=== PATIENT | female | born 1995 | race Asian ===

== ENCOUNTER 2025-06-07 04:17 | Inpatient (IN) ==
[2025-06-07] MEDS ORDERED: LIDOCAINE 1% LOCAL 20 ML VIAL INFIL PRN (07:40)
[2025-06-07] MEDS ORDERED: CALCIUM CARBONATE 500 MG CHEWABLE TAB PO PRN (07:40)
[2025-06-07] MEDS ORDERED: OXYTOCIN 30 UNITS/NSS 30 UNITS/500 ML BAG IV PRN ×2 (07:40→19:11)
--- NOTE | 2025-06-07 07:45 | History & Physical Report ---
Date of Service June 07, 2025 Assessment & Plan (1) Normal labor: Plan admit, iv, labs. pt desires epidural, aware this is early labor and will need to plan pit aug given irregular ctx. they agree. fhts categ 1. History of Present Illness Chief Complaint: contractions and pain. Primary Care Provider: NO PCP 30yo at 39+wks karolina presents to LD with contractions and pain and some bleeding. Initial evaluation on LD cx 2-3cm/50%, she walked and now back on monitor for evaluation. Still with pain. No active bleeding. PNC uncomplicated, transferred care from [place] at about 25wks, PNL RH pos, RI, gbs neg. OBH: g1 GYNH: nl pap about 1yr ago in [place], per pt. no stds Allergies Allergy/AdvReac Type Severity Reaction Status Date / Time No Known Allergies Allergy Verified 06/02/25 11:16 Home Medications Medication Instructions Recorded Confirmed Type calcium carbonate [Calcium 500] PO DAILY 03/01/25 06/02/25 History cholecalciferol (vitamin D3) PO DAILY 03/01/25 06/02/25 History ferrous sulfate [Iron (ferrous PO DAILY 03/01/25 06/02/25 History sulfate)] folic acid PO DAILY 03/01/25 06/02/25 History polyethylene glycol 3350 [Miralax] PO PRN Constipation 03/01/25 06/02/25 History Patient History Medical History Varicella vaccination Eczema Surgical History S/P breast augmentation Family History Denies family history of Ovarian cancer Breast cancer Colorectal cancer Social History (Updated 03/01/25 @ 09:32 by Brooke Reddy) Smoking Status: Never smoker Do You Dip or Chew Tobacco: No; Hx Alcohol Use: No Hx Substance Use: No Preferred Language: Mandarin Burmese Communication Ability: Effective Civil Attorney Required: Yes Beliefs That Will Affect Care: None marital status: marital status details: Katie Espinal (34) [phone] Current Living Situation: Spouse Current Living Situation Comment: lives with spouse, no pets current occupational status: unemployed Other Information That Helps Us Care for You: No Feels Safe at Home: Yes Safety Concerns: Feels Safe At This Time Assistive Devices: Glasses Review of Systems as per Subjective / HPI Physical Exam Constitutional: WD/WN, vitals as above Respiratory: normal respiratory effort, lungs clear to auscultation Cardiovascular: Rate/Rhythm: regular rate and regular rhythm Gastrointestinal (Abdomen): soft gravid nt efw 6-7# Musculoskeletal: no edema nontender calves Neurologic: grossly normal Psychiatric: A+Ox3, euthymic affect Genitourinary: Manual OB Exam: + cervical dilation 4 cm, + cervical effacement 70% and + station -2 OB Exam Monitor Tracing: + external FHT monitor used, + external uterine monitor used (q2-6), + category I and + normal FHT variability Results & Data Vital Signs (Past 12 Hours) Vital Signs Temp Pulse Resp BP O2 Del Method 06/07/25 07:15 Room Air 06/07/25 07:11 72 99/54 L 06/07/25 04:47 97.9 F 67 18 112/55 L 06/07/25 04:41 97.9 F 18 Coding Level of Care Code None Diagnoses Normal labor O80; Z37.9
[2025-06-07 08:05] LABS: Hematocrit (blood only) 32.5 % (37.0-47.0); Hemoglobin 11.3 g/dL (12.0-16.0); Mean Corpuscular Hemoglobin 31.9 pg (25.0-34.0); Mean Corpuscular Volume 91.8 fL (80.0-100.0); Platelet Count 177 K/uL (130-400); RDW Standard Deviation 43.2 fL (36.4-46.3); Red Blood Count 3.54 M/uL (4.20-5.40); White Blood Count 10.04 K/ul (4.8-10.8)
[2025-06-07] MEDS: LACTATED RINGER'S 1,000 ML IV PRN (08:24)
--- NOTE | 2025-06-07 08:56 | Anesthesiology Consultation ---
Date of Service June 07, 2025 Assessment & Plan ASA ASA2 Proposed Anesthesia Anesthesia Type: Labor Epidural Risk / Benefits Reviewed With: PT / POA / Parent / Guardian, Accepts Plan and Informed Consent Obtained History Height/Weight Height: 5 ft 6 in Weight: 64.864 kg Allergies Allergy/AdvReac Type Severity Reaction Status Date / Time No Known Allergies Allergy Verified 06/02/25 11:16 Medications Home Medications Medication Instructions Recorded Confirmed Last Taken calcium carbonate [Calcium 500] PO DAILY 03/01/25 06/02/25 06/06/25 cholecalciferol (vitamin D3) PO DAILY 03/01/25 06/02/25 06/06/25 ferrous sulfate [Iron (ferrous PO DAILY 03/01/25 06/02/25 06/06/25 sulfate)] folic acid PO DAILY 03/01/25 06/02/25 06/06/25 polyethylene glycol 3350 [Miralax] PO PRN Constipation 03/01/25 06/02/25 06/06/25 Active Medications Generic Name Dose Route Start Last Admin Trade Name Scottq PRN Reason Stop Dose Admin Lactated Ringer's 1,000 mls @ 125 mls/hr 06/07/25 07:40 06/07/25 08:24 Lr IV 06/09/25 07:39 999 mls/hr .Q8H PRN Administration L&D Protocol Protocol Past Medical History Medical History Varicella vaccination Eczema Exercise / Class Metabolic Activity II 4-5 Yardwork/Stairs/Walk up hill Past Family History Family History Denies family history of Ovarian cancer Breast cancer Colorectal cancer Past Surgical History Surgical History S/P breast augmentation Past Anesthesia History No Hx of Anesthesia Complications and No Family Hx of Anesthesia Complications History of PONV No Hx of PONV and No Hx of Motion Sickness Social History Smoking Status: Never smoker Do You Dip or Chew Tobacco: No Hx Alcohol Use: No Hx Substance Use: No Review of Systems denies fever/cough/ colds/ chest pain/ SOB/ MARITZA denies MARITZA Physical Exam Vital Signs Last Vital Signs Temp 36.6 C 06/07/25 04:47 Pulse 69 06/07/25 08:52 Resp 18 06/07/25 04:47 BP 111/62 06/07/25 08:36 Pulse Ox 99 06/07/25 08:52 O2 Del Method Room Air 06/07/25 07:15 ENMT Mouth: no TMJ abnormality and no dentition abnormality Thyromental Distance: > or= 3.5 Finger Breadths Mallampati Class: II Neck neck extension not limited Respiratory normal respiratory effort; no respiratory distress Auscultation: lungs clear to auscultation bilaterally Cardiovascular Rate/Rhythm: regular rate and regular rhythm Neurologic moves all extremities Psychiatric Orientation: alert and oriented x 3 Testing Laboratory Results 06/07/25 07:50
[2025-06-07] MEDS ORDERED: LIDOCAINE 2% MPF LOCAL 5 ML VIAL EPI PRN (08:57)
[2025-06-07] MEDS ORDERED: NALBUPHINE HCL INJ 10 MG/ML AMP IV PRN (08:57)
[2025-06-07] MEDS ORDERED: ONDANSETRON INJ 2 MG/ML 2 ML VIAL IV PRN (08:57)
[2025-06-07] MEDS ORDERED: SODIUM CHLORIDE 0.9% PF INJ 10 ML VIAL EPI PRN (08:57)
[2025-06-07] MEDS ORDERED: NALOXONE HCL 0.4 MG/1 ML VIAL/CARP IV PRN (08:57)
[2025-06-07] MEDS ORDERED: ROPIVACAINE 0.5% PF 5 MG/ML 20 ML VIAL EPI PRN (08:57)
[2025-06-07] MEDS ORDERED: BUPIVACAINE 0.25% PF 30 ML VIAL EPI PRN (08:57)
[2025-06-07] MEDS ORDERED: NALOXONE HCL 1 MG in SODIUM CHLORIDE 0.9% 1,000 ML IV PRN (08:57)
[2025-06-07] MEDS ORDERED: PROMETHAZINE 6.25 MG/50.25 ML BAG IV PRN (08:57)
[2025-06-07] MEDS ORDERED: diphenhydrAMINE 50 MG/ML VIAL IV PRN (08:57)
[2025-06-07] MEDS: fentANYL 2 MCG/ML BUPIVacaine 0.125%-NSS 100ML BAG ONE (09:27)
[2025-06-07] MEDS: BUPIVACAINE 0.25% PF 30 ML VIAL ONE (09:28)
[2025-06-07] MEDS: LIDOCAINE 2%/EPINEPHRINE 1:200,000 20 ML PF ONE (09:28)
[2025-06-07] MEDS: BUPIVACAINE 0.25% PF 30 ML VIAL EPI STA (09:31)
[2025-06-07] MEDS: LIDOCAINE 2%/EPINEPHRINE 1:200,000 20 ML PF EPI STA (09:32)
[2025-06-07] MEDS: SODIUM CHLORIDE 0.9% PF INJ 10 ML VIAL EPI STA (09:48)
--- NOTE | 2025-06-07 10:29 | Labor Progress Brief Note ---
Date of Service June 07, 2025 Subjective Reason For Note: Routine Evaluation Assessment & Plan (1) Normal labor: Plan: Progressing well. Category 1 tracing. Will continue to monitor. (2) Supervision of normal first : Trimester: third trimester Qualified Code(s): Z34.03 - Encounter for supervision of normal first , third trimester Admission and Anticipated Discharge Date Admission Date: June 07, 2025 Physical Exam Genitourinary: normal external appearance Manual OB Exam: + cervical dilation (5-6), + cervical effacement 80%, + station -2 and + amniotic fluid (AROM) clear OB Exam Monitor Tracing: + external FHT monitor used, + external uterine monitor used, + category I and + normal FHT variability Results & Data Vital Signs (Past 12 Hours) Vital Signs Temp Pulse Resp BP Pulse Ox O2 Del Method 06/07/25 10:22 81 98 06/07/25 10:17 72 97 06/07/25 10:12 86 94 06/07/25 10:11 76 94 06/07/25 10:10 71 98/50 L 06/07/25 10:07 76 98 06/07/25 10:06 70 96/57 L 89 L 06/07/25 10:02 65 97 06/07/25 10:00 16 06/07/25 10:00 16 06/07/25 09:57 65 97 06/07/25 09:55 76 98/56 L 06/07/25 09:52 70 98 06/07/25 09:48 69 95/53 L 06/07/25 09:47 68 97 06/07/25 09:46 64 98/53 L 93 06/07/25 09:44 75 97/53 L 06/07/25 09:42 69 99/55 L 91 06/07/25 09:40 66 102/53 L 93 06/07/25 09:38 70 100/53 L 06/07/25 09:37 73 97 06/07/25 09:36 65 105/56 L 06/07/25 09:34 71 100/55 L 92 06/07/25 09:32 61 105/57 L 97 06/07/25 09:30 77 18 109/55 L 06/07/25 09:28 72 111/59 L 06/07/25 09:27 74 98 06/07/25 09:26 69 111/56 L 06/07/25 09:24 68 117/58 L 06/07/25 09:22 64 114/58 L 98 06/07/25 09:20 69 114/58 L 06/07/25 09:18 69 111/66 06/07/25 09:17 72 98 06/07/25 09:16 68 109/56 L 06/07/25 09:14 73 110/60 06/07/25 09:12 75 115/63 96 06/07/25 09:10 75 115/66 06/07/25 09:08 70 118/69 06/07/25 09:07 85 97 06/07/25 09:06 82 114/57 L 06/07/25 09:04 64 06/07/25 09:04 82 114/59 L 92 06/07/25 09:02 85 98 06/07/25 08:52 69 99 06/07/25 08:47 61 98 06/07/25 08:43 73 93 06/07/25 08:42 64 97 06/07/25 08:37 72 91 06/07/25 08:36 70 111/62 06/07/25 07:15 Room Air 06/07/25 07:11 72 99/54 L 06/07/25 04:47 36.6 C 67 18 112/55 L 06/07/25 04:41 36.6 C 18 Coding Level of Care Code None Diagnoses Normal labor O80; Z37.9 Encounter for supervision of normal first in third trimester Z34.03 Trimester: third trimester
[2025-06-07] MEDS: SODIUM CHLORIDE 0.9% PF INJ 10 ML VIAL ONE (11:19)
[2025-06-07] MEDS: fentANYL 2 MCG/ML BUPIVacaine 0.125%-NSS 100ML BAG EPI PRN (15:55)
[2025-06-07] MEDS: OXYTOCIN 30 UNITS/NSS 30 UNITS/500 ML BAG IV PRN (18:55)
[2025-06-07] MEDS: miSOPROStol 200 MCG TAB PR ONE (19:00)
[2025-06-07] MEDS ORDERED: HYDROCORTISONE ACETATE 25 MG SUPP PR PRN (19:11)
[2025-06-07] MEDS ORDERED: DIPHTHER/TETAN/PERTUS Vaccine (Tdap, Adol/Adult) 0.5mL IM ONE (19:11)
[2025-06-07] MEDS ORDERED: BENZOCAINE 20% SPRY 85 APPLN/85 GM CAN EXT PRN (19:11)
--- NOTE | 2025-06-07 19:16 | Delivery Summary ---
Vaginal Delivery Summary Date of Service June 07, 2025 Vaginal Delivery Summary and 2nd Degree LAC Patient progressed to 10 cm dilated, 100% effaced, +2 station and pushed over an intact perineum with epidural anesthesia and delivered a viable male with weight and Apgars pending. Had the delivered without difficulty quickly followed by shoulders and body. was noted be vigorous upon delivery and a 1 minute delayed cord clamping was initiated. Cord was then doubly clamped and cut remained on maternal abdomen. Cord blood obtained and attention turned to the delivery of the placenta which delivered intact with gentle cord traction. On inspection perineum vagina and cervix there is noted to be a second-degree perineal laceration which was repaired with 3-0 Vicryl in the traditional crown stitch. Needle sponge and instrument counts were correct at the completion of the case. Both mother and stable in the immediate post delivery timeframe. No complications noted and blood loss per QBL in chart [facility] Vaginal Delivery Charge Delivery Type Details: and 2nd Degree LAC
[2025-06-07] MEDS: DOCUSATE SODIUM 100 MG CAP PO SCH (22:47)
[2025-06-08 06:48] LABS: Hematocrit (blood only) 29.1 % (37.0-47.0); Hemoglobin 10.0 g/dL (12.0-16.0)
--- NOTE | 2025-06-08 07:29 | Obstetrical Progress Note ---
Date of Service June 08, 2025 Assessment & Plan (1) Normal vaginal delivery: Plan 30 yo post- day 1 s/p . Fells well today. Vital signs stable Continue post- care Encourage ambulation and Pain controlled with ibuprofen Hgb stable Discharge home tomorrow, follow up with Dr. Chew in 6 weeks. Admission and Anticipated Discharge Date Admission Date: June 07, 2025 Supervising Physician Co-Signing Physician Notes Patient seen with resident and agree with the above findings and plan. Has a Car catheter in place due to urinary retention. Will keep in place for 12 hours postplacement Subjective 30 yo post- day 1 s/p Ambulation: ambulating normally Voiding: no, Car in place Passing Gas:: Yes Diet Tolerance:: regular diet Lochia:: Small Feeding Type:: breast feeding Current Pain Level:Slight pain. Resting comfortably this AM in NAD. Denies METZGER, CP, SOB, N/V/D, LE pain/swelling. Review of Systems Review of Systems: As per HPI. Physical Exam Physical Exam: General: patient resting comfortably, NAD, non-toxic in appearance, AA&O x 4, answers questions appropriately. Skin: warm, dry, intact HEENT: NC/AT, anicteric sclera, conjunctiva without injection, moist mucus membranes. Heart: +S1/S2, regular, no m/r/g Lungs: equal air entry bilaterally, no rales/rhonchi/wheezes Abd: +BS, soft, NT/ND, uterine fundus firm at umbilicus Ext: warm, no clubbing/cyanosis or edema, Al Nena's neg. Neuro: nonfocal, patient AA&O x 4, speech intact, no facial droop, moving all extremities on command. Results & Data Vital Signs (Past 12 Hours) Vital Signs Temp Pulse Pulse Resp BP BP Pulse Ox 06/08/25 04:30 37.1 C 68 16 99/59 L 98 06/07/25 23:30 37.2 C 71 16 93/60 L 95 06/07/25 21:14 85 101/52 L 06/07/25 20:59 84 96/55 L 06/07/25 20:45 37.6 C H 06/07/25 20:44 79 94/52 L 06/07/25 20:37 78 96 12/22/25 20:32 85 96 06/07/25 20:29 83 94/53 L 06/07/25 20:27 85 98 06/07/25 20:22 82 98 06/07/25 20:17 80 97 06/07/25 20:14 81 86/54 L 06/07/25 20:12 75 96 06/07/25 20:07 86 97 06/07/25 20:02 89 96 06/07/25 19:59 80 104/52 L 06/07/25 19:57 85 97 06/07/25 19:52 81 97 06/07/25 19:47 87 98 06/07/25 19:44 94 H 107/57 L 06/07/25 19:42 82 97 06/07/25 19:37 86 97 06/07/25 19:32 78 97 06/07/25 19:29 76 109/55 L 06/07/25 19:27 80 97 O2 Del Method 06/08/25 04:30 Room Air 06/07/25 23:30 Room Air 06/07/25 21:14 06/07/25 20:59 06/07/25 20:45 Room Air 06/07/25 20:44 06/07/25 20:37 06/07/25 20:32 06/07/25 20:29 06/07/25 20:27 06/07/25 20:22 06/07/25 20:17 06/07/25 20:14 06/07/25 20:12 06/07/25 20:07 06/07/25 20:02 06/07/25 19:59 06/07/25 19:57 06/07/25 19:52 06/07/25 19:47 06/07/25 19:44 06/07/25 19:42 06/07/25 19:37 06/07/25 19:32 06/07/25 19:29 06/07/25 19:27 Resident Activity Tracking Resident Involvement: Resident Care Provided Care Provided: Adult Hospital Medicine
--- NOTE | 2025-06-08 07:48 | Anesthesia Procedure Note ---
Date of Service June 08, 2025 Anesthesia Post Epidural Note Vital Signs Vital Signs: Temp Pulse Resp BP Pulse Ox O2 Del Method 37.1 C 68 16 99/59 L 98 Room Air 06/08/25 04:30 06/08/25 04:30 06/08/25 04:30 06/08/25 04:30 06/08/25 04:30 06/08/25 04:30 Pain Intensity Abdomen: Pain Intensity: 0 Notes Mental Status: alert / awake / arousable Nausea / Vomiting: adequately controlled Pain: adequately controlled Airway Patency, RR, SpO2: stable & adequate BP & HR: stable & adequate Hydration State: stable & adequate Neuraxial Anesthesia: was administered and sensory block is resolving Anesthetic Complications: no major complications apparent and Pt Satisfied with anesthetic care Epidural: Removed without complications and With tip intact
[2025-06-08] MEDS: FERROUS SULFATE 325 MG TAB PO SCH (08:33)
[2025-06-08] MEDS: PRENATAL VITAMIN 1 TAB PO SCH (08:33)
[2025-06-08] MEDS: IBUPROFEN 600 MG TAB PO PRN (08:33)
[2025-06-08] MEDS: ACETAMINOPHEN 325 MG TAB PO PRN (19:12)
[2025-06-08] MEDS: POLYETHYLENE (MIRALAX) 17 GM PACK PO PRN (23:59)
--- NOTE | 2025-06-09 06:56 | Obstetrical Progress Note ---
Date of Service June 09, 2025 Assessment & Plan (1) Normal vaginal delivery: Plan 30 yo post- day 2 s/p . Fells well today. Vital signs stable Continue post- care Encourage ambulation and Pain controlled with ibuprofen Hgb stable Discharge home today, follow up with Dr. Chew in 6 weeks. Admission and Anticipated Discharge Date Admission Date: June 07, 2025 Supervising Physician Co-Signing Physician Notes Resident Physician Supervision Note: I interviewed and examined the patient. Discussed with Dr. Spears and agree with findings and plan as documented in the note. Any exceptions or clarifications are listed here: Overall doing well. helps to translate. Is fixated on BM. Has not had for 4 days. Very concerned about pain and with stitches. Bottom examined and stitches are tender but approximated without swelling or hematoma. Patient asking for rectal supp to help with bm. Will trial oral Ducolax first but then can do rectal if no result. Reassured about stitches. Discussed should improve with more movement. Plan d/c later this evening. instructions reviewed. Discussed using hot water to help with BM. Discussed ice for perineal discomfort. Documented By: Mikayla Lawson MD, FACOG Subjective 30 yo post- day 2 s/p Ambulation: ambulating normally Voiding: Yes, Car is out yesterday. Passing Gas:: Yes Diet Tolerance:: regular diet Lochia:: Small Feeding Type:: breast feeding Current Pain Level:Slight pain. Resting comfortably this AM in NAD. Denies METZGER, CP, SOB, N/V/D, LE pain/swelling. Review of Systems Review of Systems: As per HPI. Physical Exam Physical Exam: General: patient resting comfortably, NAD, non-toxic in appearance, AA&O x 4, answers questions appropriately. Skin: warm, dry, intact HEENT: NC/AT, anicteric sclera, conjunctiva without injection, moist mucus me mbranes. Heart: +S1/S2, regular, no m/r/g Lungs: equal air entry bilaterally, no rales/rhonchi/wheezes Abd: +BS, soft, NT/ND, uterine fundus firm at umbilicus Ext: warm, no clubbing/cyanosis or edema, La Nena's neg. Neuro: nonfocal, patient AA&O x 4, speech intact, no facial droop, moving all extremities on command. Results & Data Vital Signs (Past 12 Hours) Vital Signs Temp Pulse Resp BP Pulse Ox O2 Del Method 06/09/25 00:00 37.1 C 72 16 100/65 96 Room Air Resident Activity Tracking Resident Involvement: Resident Care Provided Care Provided: Adult Hospital Medicine
[2025-06-09 08:27] VITALS: BP 99/63; RESP 14; TEMP 97.9; O2SAT 98
[2025-06-09 21:17] VITALS: PULSE 73
== END 2025-06-09 19:20 | disposition home or self-care (01) | DRG 807 ==
LOC: OPB 04:17 → 4S1 04:20 → 4E2 22:04